=== PATIENT | male | born 2000 | race Caucasian/White ===

== ENCOUNTER 2023-07-29 22:20 | Emergency (ER) | payer MEDICAID, OTHER ==
[~2023-07-29] VITALS: Ht 180.3 cm; Wt 83.2 kg
[2023-07-29 22:35] VITALS: TEMP 98.4
[2023-07-30] MEDS: MAG HYDROX/ALUMINUM HYD/SIMETH ES 30 ML SUSPENSION UDCUP PO ONE (03:34)
[2023-07-30 03:52] LABS: TROPONIN I-HIGH SENSITIVITY 4 ng/L (<76)
[2023-07-30 04:43] VITALS: BP 144/85; PULSE 65; RESP 18
== END 2023-07-30 04:44 | disposition home or self-care (01) ==
LOC: EMS 22:22
DX: R11.2 Nausea with vomiting, unspecified (principal); R07.9 Chest pain, unspecified; Z88.0 Allergy status to penicillin
CPT/HCPCS: 84484; 93005; 99284